=== PATIENT | female | born 1950 | race Caucasian/White ===

== ENCOUNTER 2018-10-09 10:29 | Emergency (ER) | payer MEDICAID | END 2018-10-09 11:35 | disposition home or self-care (01) | LOC: FTE 10:29 | DX: R05 Cough (principal); R51 Headache; R50.9 Fever, unspecified; R09.89 Other specified symptoms and signs involving the circulatory and respiratory systems; I10 Essential (primary) hypertension | CPT/HCPCS: 99283; Z7502 ==